=== PATIENT | male | born 1990 | race Caucasian/White ===

== ENCOUNTER 2019-01-26 13:20 | Inpatient (IN) | payer MEDICAID ==
--- NOTE | 2019-01-13 22:00 | NUR ---
PT. STILL AWAKE AT THIS TIME. ABLE TO ANSWER SIMPLE QUESTIONS. WATCHING TV . CALL LIGHT WITH IN REACH. NO SOB. NO RESTLESSNESS NOTED. MOTHER AT BEDSIDE. PT. CALM .TELEMETRY MONITORING.
[~2019-01-26] VITALS: Ht 182.9 cm; Wt 131.1 kg
--- NOTE | 2019-01-26 13:20 | NUR ---
Patient BIBA ALS accompanied by Imelda 183, transferred to bed 6. RN evaluating patient at bedside.
[2019-01-26 13:21] VITALS: BP 123/78
[2019-01-26] MEDS ORDERED: ONDANSETRON 4 MG/2 ML VIAL IVP ONE (13:40)
[2019-01-26] MEDS ORDERED: NACL 0.9% 1,000 ML IV ONE (13:40)
--- NOTE | 2019-01-26 13:50 | NUR ---
PT REMAINS WITH ALTERED LOC. PER DR GILL, VERBAL ORDER FOR STRAIGHT CATH TO GET URINE SAMPLE. PT UNABLE TO COLLECT URINE USING URINAL AT THIS TIME. EXPLAINED PROCEDURE TO PT, PT ABLE TO TOLERATE PROCEDURE WITH NO COMPLICATIONS. URINE SAMPLE GIVEN TO ASSEMBLY LEAD PERSON
--- NOTE | 2019-01-26 13:51 | NUR ---
X-Ray at bedside.
--- NOTE | 2019-01-26 14:05 | NUR ---
MATTEO FROM URGENT CARE WITH C/O AMS. PT IS A & O X4 AT THIS TIME. PT STATES HE DOES NOT KNOW HOW HE ARRIVED TO THE ER OR WHY HE IS HERE. PT TARA MEDICAL HISTORY, DRUG USE, ALCOHOL USE. PT IS AWAKE BUT APPEARS NERVOUS/SCARED AT THIS TIME. KENYATTA, GCS 15/15. BED IN LOW POSITION, SIDE RAIL UP X2 FOR PT SAFTEY. SEIZURE PADS IN PLACE A PRECATION. PT PLACED ON BEDSIDE BROODMARE BARN GROOM AT THIS TIME.
[2019-01-26 14:10] LABS: BASOPHILS % (AUTO) 0.3 % (0.0-2.0); EOSINOPHILS % (AUTO) 0.2 % (0.0-4.0); HEMATOCRIT 43.5 % (36-52); HEMOGLOBIN 14.7 g/dL (12.0-18.0); LYMPHOCYTES # (AUTO) 1.5 K/uL (2.0-11.5); LYMPHOCYTES % (AUTO) 13.9 % (20.5-51.1); MEAN CORPUSCULAR HEMOGLOBIN 29 pg (27-31); MEAN CORPUSCULAR HGB CONC 34 g/dL (33-37); MEAN CORPUSCULAR VOLUME 86.7 fL (80-94); MONOCYTES # (AUTO) 0.7 K/uL (0.8-1.0); MONOCYTES % (AUTO) 6.6 % (1.7-9.3); NEUTROPHILS # (AUTO) 8.5 K/uL (1.8-7.7); PLATELET COUNT (AUTO) 246 K/uL (140-450); RED BLOOD CELL COUNT(AUTO) 5.02 MIL/uL (4.20-6.10); RED CELL DISTRIBUTION WIDTH 13.2 % (11.6-13.7); WHITE BLOOD COUNT (AUTO) 10.7 K/uL (4.8-10.8)
--- NOTE | 2019-01-26 14:17 | NUR ---
Pt taken to CT via guraryne accompanied by nurse.
[2019-01-26 14:27] LABS: APPEARANCE,URINE CLEAR (CLEAR); BILIRUBIN,URINE NEGATIVE (NEGATIVE); BLOOD, URINE NEGATIVE (NEGATIVE); COLOR,URINE YELLOW (YELLOW); LEUKOCYTE ESTERASE ,URINE NEGATIVE (NEGATIVE); NITRITE, URINE NEGATIVE (NEGATIVE); UGLUCOSE NEGATIVE (NEGATIVE)
[2019-01-26 14:30] LABS: ANION GAP 12.6 (8-16); CARBON DIOXIDE 26.9 mmol/L (21-32); CHLORIDE 103 mmol/L (98-107); GFR ARICAN-AMERICAN 112 mL/min (>90); GLUCOSE 101 mg/dL (74-106); POTASSIUM 3.5 mmol/L (3.5-5.1); SODIUM SERUM 139 mmol/L (136-145); UREA NITROGEN, BLOOD 8 mg/dL (7-18)
--- NOTE | 2019-01-26 14:30 | NUR ---
Pt returned from CT and placed in bed 6.
[2019-01-26 14:37] LABS: ALBUMIN 3.6 g/dL (3.4-5.0); ASPARTATE AMINOTRANSFERASE 108 U/L (15-37); TOTAL BILIRUBIN 0.5 mg/dL (0.0-1.0)
[2019-01-26 14:39] LABS: ACETAMINOPHEN < 0.5 ug/ml (10-30); SALICYLATE < 2.8 mg/dL (2.8-20.0)
[2019-01-26 14:51] LABS: RBC,URINE NONE SEEN /HPF (0-5); WBC,URINE NONE SEEN /HPF (0-5)
[2019-01-26 14:52] LABS: URINE AMORPHOUS URATE 3+ /HPF (None Seen)
--- NOTE | 2019-01-26 14:53 | NUR ---
Dr. Multani evaluating patient at bedside.
[2019-01-26 15:09] LABS: PROTHROMBIN TIME 10.3 secs (10.8-13.4)
[2019-01-26 15:35] LABS: BARBITURATE, URINE NEG. ng/ml (NEG <=200); BENZODIAZEPINE, URINE NEG. ng/mL (NEG <=200); CANNABINOID, URINE NEG. ng/mL (NEG <=50); COCAINE, URINE NEG. ng/mL (NEG <=300); OPIATE, URINE NEG. ng/mL (NEG <=2000); PHENCYCLIDINE SCREEN,URINE NEG. ng/mL (NEG <=25)
--- NOTE | 2019-01-26 15:47 | NUR ---
Dr. Multani re-evaluating patient at bedside.
[2019-01-26] MEDS ORDERED: levETIRAcetam 1,000 MG in NACL 0.9% 100 ML IV ONE (15:55)
[2019-01-26] MEDS ORDERED: levETIRAcetam 100 MG/ML VIAL IV ONE ×2 (16:00→16:01)
[2019-01-26] MEDS ORDERED: ONDANSETRON 4 MG/2 ML VIAL IM/IVP PRN (16:25)
[2019-01-26] MEDS ORDERED: DOCUSATE SODIUM 100 MG GELCAP PO PRN (16:25)
--- NOTE | 2019-01-26 17:03 | NUR ---
WAITING FOR ROOM TO OPEN TO TAKE PT TO FLOOR
--- NOTE | 2019-01-26 17:03 | NUR ---
Rick tinajero in [facility] - 01/26/19 at 1703 by FELICITA WAITING FOR ROOM TO OPEN UP
[2019-01-26] MEDS ORDERED: LORazepam 2 MG/ML VIAL IM/IVP PRN (18:10)
--- NOTE | 2019-01-26 18:20 | NUR ---
RECEIVED REPORT FROM HENRY GALO. PT AAOX4, NO C/O PAIN. PT ON REFUND CLERK, VSS. IV ON LT AC 18 GA ON SALINE LOCK. RESPIRATIONS EVEN AND UNLABORED ON RA. ABD SOFT, ACTIVE BS, LBM 01/24. PT VOIDS, WILL PROVIDE URINAL. SKIN IS INTACT, WARM TO TOUCH. PT ON FALL RISK PRECAUTIONS, SAFETY MEASURES IN PLACE, CALL LIGHT WITHIN REACH. REVIEWED POC WITH PT, PT VERBALIZED UNDERSTANDING.
[2019-01-26] MEDS: NACL 0.9% 1,000 ML IV SCH (18:37)
[2019-01-26 18:40] VITALS: BP 120/63
--- NOTE | 2019-01-26 18:56 | NUR ---
Patient will be admitted to care of DR. WANG. Admited to TELEMETRY. Will go to room 121A. Belongings list completed. Report to HENRY QIUÑONES.
--- NOTE | 2019-01-26 19:00 | NUR ---
RECEIVED REPORT ON PT FROM AM NURSE. PT IN STABLE CONDITION. AWAKE,ALERT AND ORIENTED X3. WITH PERIODS OF FORGETFULNESS AT THIS TIME. STILL EATING DINNER. MOTHER AT BEDSIDE. ON TEL MONITOR. HAS IVF INFUSING WELL ON THE LT AC G #18. CLEAR AND PATENT. SIDE RAILS UP X2, PADDED FOR SEIZURE PRECAUTION. PLAN OF CARE DISCUSSED AND VERBALIZED UNDERSTANDING. BED ON LOW POSITION. FREQ ROUNDS NEEDED. CALL LIGHT AND URINAL WITHIN EASY REACH. WILL WILL CONTINUE TO MONITOR PT FOR MANY SEIZURE ACTIVITY.
--- NOTE | 2019-01-26 19:00 | NUR ---
ENDORSED PT TO POULTRY VETERINARIAN NURSE. PT SITTING UP IN BED HAVING DINNER. PT HAS NO SIGNS OF DISTRESS AT THIS TIME.
[2019-01-26 19:25] VITALS: BP 130/70
--- NOTE | 2019-01-26 19:30 | NUR ---
MRSA NARES SPECIMEN COLLECTED AND SEND TO LAB.
[2019-01-26 20:01] LABS: PHOSPHORUS 2.9 mg/dL (2.5-4.9); THYROID STIMULATING HORMONE 1.34 uIU/mL (0.34-3.74)
--- NOTE | 2019-01-26 20:45 | NUR ---
PT STILL EATING DINNER. MOTHER STILL AT BEDSIDE THEN FATHER CAME TO SEE PT.
[2019-01-26] MEDS: LORazepam 2 MG/ML VIAL IM/IVP PRN (21:54)
--- NOTE | 2019-01-26 21:55 | NUR ---
PT LOOKS ANXIOUS. STARING BLANKLY, BUT RESPONDED WHEN ASKED IF OK. MOM AT BEDSIDE. ATIVAN 1 MG IVP GIVEN ORDERED. WILL CONTINUE TO MONITOR.
--- NOTE | 2019-01-26 22:00 | NUR ---
US RESULT STILL PENDING. WILL FOLLOW UP RESULT.
[2019-01-27] VITALS (7 sets, daily range): BP systolic 120–141; BP diastolic 60–85
--- NOTE | 2019-01-27 01:30 | NUR ---
MADE ROUNDS . PT IS ASLEEP. NO S/S OF ANY DISCOMFORT NOTED. WILL CONTINUE TO MONITOR.
--- NOTE | 2019-01-27 02:54 | NUR ---
AWAKE. NO S/S OF ANY DISCOMFORT NOTED. NO SEIZURE ACTIVITY NOTED ALSO . WILL CONTINUE TO MONITOR.
--- NOTE | 2019-01-27 03:30 | NUR ---
MADE ROUNDS. PT AWAKE. WATCHING TV. NO C/O ANY DISCOMFORT NOTED.
--- NOTE | 2019-01-27 05:00 | NUR ---
MADE ROUNDS. PT STILL AWAKE. NO C/O ANY PAIN NOR ANY DISCOMFORT NOTED.
--- NOTE | 2019-01-27 06:11 | NUR ---
DR. SAMS MADE AWARE ABOUT PT NEED TO GET FLU VACCINE HERE [facility]ON [facility].
[2019-01-27 06:38] LABS: BASOPHILS % (AUTO) 0.4 % (0.0-2.0); EOSINOPHILS # (AUTO) 0.1 K/uL (0-0.4); EOSINOPHILS % (AUTO) 1.3 % (0.0-4.0); HEMOGLOBIN 14.9 g/dL (12.0-18.0); LYMPHOCYTES # (AUTO) 2.5 K/uL (2.0-11.5); LYMPHOCYTES % (AUTO) 25.3 % (20.5-51.1); MEAN CORPUSCULAR HEMOGLOBIN 30 pg (27-31); MEAN CORPUSCULAR HGB CONC 34 g/dL (33-37); MEAN CORPUSCULAR VOLUME 87.2 fL (80-94); MONOCYTES # (AUTO) 0.7 K/uL (0.8-1.0); MONOCYTES % (AUTO) 7.1 % (1.7-9.3); NEUTROPHILS # (AUTO) 6.4 K/uL (1.8-7.7); NEUTROPHILS % (AUTO) 65.9 % (42.2-75.2); PLATELET COUNT (AUTO) 238 K/uL (140-450); RED BLOOD CELL COUNT(AUTO) 5.05 MIL/uL (4.20-6.10); RED CELL DISTRIBUTION WIDTH 13.6 % (11.6-13.7); WHITE BLOOD COUNT (AUTO) 9.8 K/uL (4.8-10.8)
[2019-01-27 06:43] LABS: ANION GAP 10.7 (8-16); CARBON DIOXIDE 28.8 mmol/L (21-32); CREATININE 0.8 mg/dL (0.7-1.3); POTASSIUM 3.5 mmol/L (3.5-5.1)
[2019-01-27 06:55] LABS: MAGNESIUM 2.2 mg/dL (1.8-2.4); PHOSPHORUS 2.7 mg/dL (2.5-4.9)
[2019-01-27 06:56] LABS: CHOL/HDL RATIO 3.6 (1-4.5)
--- NOTE | 2019-01-27 07:25 | NUR ---
ENDORSED PT IN STABLE CONDITION TO AM NURSE FOR CONTINUITY OF CARE.
--- NOTE | 2019-01-27 07:38 | NUR ---
RECEIVED REPORT FROM LIAISON INSPECTION LABORATORY ASSISTANT RN. PT IN STABLE CONDITION. PT IS AAOX2 TO NAME AND KNOWLEDGE OF BEING IN THE HOSPITAL. AT THIS TIME PT DOES NOT RECALL WHAT CITY HE IS IN, WHAT HIS DATE IS, OR WHAT YEAR IT IS. EXHIBITING PERIODS OF FORGETFULNESS AT THIS TIME. ON TEL MONITOR. SKIN IS INTACT. PT HAS IVF INFUSING WELL ON THE LT AC G #18. CLEAR AND PATENT. SIDE RAILS UP X2, PADDED FOR SEIZURE PRECAUTION. PLAN OF CARE DISCUSSED WITH PT AND PT VERBALIZED UNDERSTANDING. BED ON LOW POSITION. FREQ ROUNDS NEEDED. CALL LIGHT AND URINAL WITHIN EASY REACH. WILL MONITOR PT CLOSELY.
--- NOTE | 2019-01-27 08:27 | NUR ---
PATIENT HAS BEEN SCREENED AND CATEGORIZED LOW NUTRITION RISK. PATIENT WILL BE SEEN WITHIN 7 DAYS OF ADMISSION. 02/02/[address]
[2019-01-27] MEDS: NACL 0.9% 1,000 ML IV SCH ×2 (09:03→20:57)
--- NOTE | 2019-01-27 09:12 | NUR ---
PT IN STABLE CONDITION RESTING IN BED. MORNING HEPARIN HELD PER MD ORDERS DUE TO PT HAVING LUMBAR PUNCTURE LATER IN THE DAY. ALL NEEDS MET. WILL CONTINUE TO ROUND FREQUENTLY ON PT. BED IN LOW POSITION, CALL LIGHT WITHIN REACH.
[2019-01-27] MEDS: LORazepam 2 MG/ML VIAL IM/IVP PRN ×2 (10:31→17:01)
[2019-01-27 11:12] LABS: RAPID PLASMA REAGIN NON-REACTIVE (Non Reactiv)
--- NOTE | 2019-01-27 11:14 | NUR ---
PT HAVING EEG DONE AT THIS TIME. PT TOLERATING TEST WELL. PT IN STABLE CONDITION AT THIS TIME.
--- NOTE | 2019-01-27 11:40 | NUR ---
PT RESTING IN BED WITH MOM AT BEDSIDE. ALL NEEDS CURRENTLY MET. WILL CONTINUE TO ROUND FREQUENTLY ON PT.
--- NOTE | 2019-01-27 11:54 | NUR ---
RECEIVED CONSENT FROM PT'S MOTHER FOR LUMBAR PUNCTURE. CREDIT RELATIONSHIP MANAGER PHONE WAS USED TO GET VERBAL CONSENT. CREDIT RELATIONSHIP MANAGER WHO HELPED TRANSLATE CALL BETWEEN AND MOTHER PAPITO WAS JONNA. CREDIT RELATIONSHIP MANAGER ID IS [id number].
[2019-01-27] MEDS: levETIRAcetam 1,000 MG in NACL 0.9% 100 ML IV SCH ×2 (13:42→20:57)
--- NOTE | 2019-01-27 13:47 | NUR ---
PT RESTING IN BED. NO SIGNS OF AGITATION OR PAIN. WILL CONTINUE TO ROUND FREQUENTLY ON PT. BED IN LOW POSITION, CALL LIGHT WITHIN REACH. PT'S MOTHER AT BEDSIDE.
--- NOTE | 2019-01-27 13:51 | NUR ---
PT TAKEN FOR LUMBAR PUNCTURE. PT LEFT IN STABLE CONDITION.
[2019-01-27] MEDS ORDERED: fentaNYL 0.05 MG/ML VIAL ONE (13:56)
[2019-01-27] MEDS ORDERED: MIDAZOLAM 2 MG/2 ML VIAL ONE (13:57)
[2019-01-27] MEDS ORDERED: LIDOCAINE 2% 1000 MG/50 ML VIAL INJ SCH (14:25)
--- NOTE | 2019-01-27 15:47 | NUR ---
PT RETURNED FROM LUMBAR PUNCTURE. INSTRUCTED TO HAS PT LAY ON BACK FOR 6HRS STARTING FROM NOW. WILL ENDORSED TO SOLDER SPRAYER FOR CONTINUATION OF CARE. PT PUNCTURE SITE INTACT AND NO SIGNS OF BLEEDING. WILL CONTINUE TO MONITOR PT CLOSELY.
--- NOTE | 2019-01-27 17:38 | NUR ---
PT SLEEPING IN PRONE POSITION. MOTHER AT BEDSIDE. WILL CONTINUE TO ROUND FREQUENTLY ON PT. BED IN LOW POSITION, CALL LIGHT WITHIN REACH.
--- NOTE | 2019-01-27 19:29 | NUR ---
ENDORSED PT TO ROBOTIC WELDER FOR CONTINUITY OF CARE. PT IN STABLE CONDITION AT THIS TIME.
--- NOTE | 2019-01-27 19:30 | NUR ---
RECEIVED PT IN STABLE CONDITION FROM AM NURSE. PT ON TELE MONITOR-ST. AWAKE BUT CONFUSED AT THIS TIME. TRYING TO PUT PT ON HI ABDOMEN NEEDED AFTER THE LUMBAR PUNCTURE DONE THIS PM. HAS IVF INFUSING WELL ON THE LEFT AC G#18. CLEAR AND PATENT. PLAN OF CARE DISCUSSED AND FAMILY VERBALIZED UNDERSTANDING. BED ON LOW POSITION, SIDE RAILS UP X2, PADDED FOR SEIZURE PRECAUTION. CALL LIGHT AND URINAL PLACED WITHIN REACH . FREQUENT ROUNDS NEEDED. WILL CONTINUE TO MONITOR.
--- NOTE | 2019-01-27 20:45 | NUR ---
PT ENCOURAGED TO STILL BE FLAT ON BED AT THIS TIME.
--- NOTE | 2019-01-27 21:30 | NUR ---
DR. MELÉNDEZ SAID TO STILL HOLD THE HEPARIN SUBQ TONIGHT.
--- NOTE | 2019-01-27 23:15 | NUR ---
AWAKE, ASSISTED TO USE THE URINAL. VOIDED @ 500 ML . WILL CONTINUE TO MONITOR.
[2019-01-28] MEDS: LORazepam 2 MG/ML VIAL IM/IVP PRN ×3 (00:16→20:57)
--- NOTE | 2019-01-28 00:16 | NUR ---
PT IS AWAKE AND LOOK ANXIOUS ,CAN'T RELAX IN BED. ATIVAN 1 MG IVP GIVEN ORDERED. WILL CONTINUE TO MONITOR.
--- NOTE | 2019-01-28 02:00 | NUR ---
MADE ROUNDS. PT IS ASLEEP. NO S/S OF ANY DISCOMFORT NOTED. WILL CONTINUE TO MONITOR.
[2019-01-28 04:30] VITALS: BP 148/64
--- NOTE | 2019-01-28 04:30 | NUR ---
PT ASLEEP. ABLE TO TAKE VITAL SIGNS,STABLE. NO SEIZURE ACTIVITY NOTED DURING THE NIGHT.
[2019-01-28] MEDS: levETIRAcetam 1,000 MG in NACL 0.9% 100 ML IV SCH ×3 (04:34→20:28)
[2019-01-28 04:38] VITALS: BP 148/61
--- NOTE | 2019-01-28 06:00 | NUR ---
PT AWAKE. HE SAID HE IS OK. WITH PERIODS OF LIKE TALKING TO SELF.
[2019-01-28 06:07] LABS: HEPATITIS A ANTIBODY IGM Negative (Negative); HEPATITIS B CORE AB TOTAL Negative (Negative); HEPATITIS B SURFACE ANTIBODY Non Reactive (.); HEPATITIS B SURFACE ANTIGEN Negative (Negative)
[2019-01-28 06:36] LABS: MAGNESIUM 2.1 mg/dL (1.8-2.4); PHOSPHORUS 3.5 mg/dL (2.5-4.9)
[2019-01-28 06:44] LABS: ANION GAP 12.5 (8-16); CARBON DIOXIDE 26.8 mmol/L (21-32); CREATININE 0.8 mg/dL (0.7-1.3); POTASSIUM 3.3 mmol/L (3.5-5.1)
[2019-01-28 06:54] LABS: BASOPHILS % (AUTO) 0.3 % (0.0-2.0); EOSINOPHILS # (AUTO) 0.1 K/uL (0-0.4); EOSINOPHILS % (AUTO) 1.1 % (0.0-4.0); HEMATOCRIT 43.7 % (36-52); HEMOGLOBIN 14.7 g/dL (12.0-18.0); LYMPHOCYTES # (AUTO) 2.8 K/uL (2.0-11.5); MEAN CORPUSCULAR HEMOGLOBIN 30 pg (27-31); MEAN CORPUSCULAR HGB CONC 34 g/dL (33-37); MONOCYTES # (AUTO) 0.7 K/uL (0.8-1.0); MONOCYTES % (AUTO) 6.7 % (1.7-9.3); NEUTROPHILS # (AUTO) 6.4 K/uL (1.8-7.7); NEUTROPHILS % (AUTO) 63.9 % (42.2-75.2); PLATELET COUNT (AUTO) 248 K/uL (140-450); RED BLOOD CELL COUNT(AUTO) 4.97 MIL/uL (4.20-6.10); RED CELL DISTRIBUTION WIDTH 13.6 % (11.6-13.7); WHITE BLOOD COUNT (AUTO) 10.1 K/uL (4.8-10.8)
--- NOTE | 2019-01-28 07:20 | NUR ---
ENDORSED PT IN STABLE CONDITION TO AM NURSE.
--- NOTE | 2019-01-28 07:22 | NUR ---
RECEIVED REPORT FROM NIGHT RN. PT RESTING IN BED. AAOX2, NO S/S OF ACUTE DISTRESS. PT DENIES PAIN. IV SITE PATENT AND INTACT. CALL LIGHT WITHIN REACH. SAFETY MEASURES ENSURED. WILL CONTINUE TO MONITOR.
[2019-01-28 08:00] VITALS: BP 128/78
--- NOTE | 2019-01-28 08:45 | NUR ---
PT SITTING ON SIDE OF BED. AAOX2, NO S/S OF ACUTE DISTRESS. PT DENIES PAIN. PT'S IV LEAKING AT SITE. CALL LIGHT WITHIN REACH. SAFETY MEASURES ENSURED. WILL CONTINUE TO MONITOR .
[2019-01-28] MEDS ORDERED: POTASSIUM CHLORIDE 10 MEQ TABER PO SCH (09:00)
[2019-01-28 12:25] VITALS: BP 129/88
--- NOTE | 2019-01-28 12:30 | NUR ---
PT AMBULATING TO BATHROOM. NO S/S OF ACUTE DISTRESS. PT DENIES PAIN. IV SITE PATENT AND INTACT. CALL LIGHT WITHIN REACH. SAFETY MEASURES ENSURED. WILL CONTINUE TO MONITOR.
[2019-01-28] MEDS: HYDROcodone/APAP 5/325 MG 1 TAB TAB PO PRN (13:34)
--- NOTE | 2019-01-28 14:46 | NUR ---
CALLED [facility] [phone] SPOKE WITH BUTCH , RECEIVED THE MRI QUESTIONER, AND REQUESTED ATIVAN TO BE GIVEN PRIOR TO MOLDING LINE OPERATOR TIME , AND SCHEDULE THE MRI TO BE DONE AT 7AM AND SCHEDULE [facility] MOLDING LINE OPERATOR AT 0630AM TOMORROW 01/29/18 . NOTIFIED MARTI FIGUEROA . Addendum: 01/28/19 at 1527 by Brett [address] KAMRON faxed [facility] and scheduled transportation from [address] to [facility] on 01/28/2019 7:00AM. KAMRON arranged for transportation to wait and return. KAMRON confirmed with Kay at [facility]. KAMRON/ANALILIA will follow up as needed.
--- NOTE | 2019-01-28 15:27 | NUR ---
FINANCIAL MANAGEMENT FOR PATIENT WILL BE AT 0630 AM FOR TRANSPORT TO [place]. NUMBER FOR REPORT [phone]. PLEASE MEDICATE WITH ATIVAN FOR ANXIETY PRIOR TO TRANSPORT. SEND MOST CURRENT BNP WITH PATIENT.
[2019-01-28 16:00] VITALS: BP 140/72
[2019-01-28] MEDS: NACL 0.9% 1,000 ML IV SCH ×2 (17:32→22:23)
[2019-01-28 19:12] LABS: CSF GLUCOSE 68 mg/dL (40-70); CSF PROTEIN 86.9 mg/dL (15-45)
--- NOTE | 2019-01-28 19:15 | NUR ---
REPORT RECEIVED FROM AM NURSE AT BEDSIDE. PT IN STABLE CONDITION. AAOX2. INTRODUCED SELF TO PT. BOARD UPDATED. NO COMPLAINTS OF PAIN. NO SOB. AFEBRILE. PT IS AMBULATORY BUT UNSTEADY. PT IS A FALL RISK. IV SITE L AC 20G RUNNING NS@60ML/HR PATENT AND INTACT. SKIN WARM, DRY, AND INTACT WITH NO OPEN WOUNDS. BED LOCKED IN LOW POSITION. CALL GIL WITHIN REACH. SAFETY PRECAUTION IN PLACE. ALL NEEDS MET AT THIS TIME.
[2019-01-28 20:00] VITALS: BP 168/101
--- NOTE | 2019-01-28 20:28 | NUR ---
ALBARO GIL AND MAYRA. HEPARIN GIVEN SUBQ. PT TOLERATED WELL.
--- NOTE | 2019-01-28 20:57 | NUR ---
ATIVAN GIVEN FOR ANXIETY. PT TOLERATED WELL.
--- NOTE | 2019-01-28 21:35 | NUR ---
PT IN BED WATCHING TV. NO S/S OF DISTRESS NOTED. WILL CONTINUE TO MONITOR.
[2019-01-28] MEDS: ACETAMINOPHEN 325 MG TAB PO PRN (23:07)
--- NOTE | 2019-01-28 23:07 | NUR ---
TYL GIVEN FOR HEADACHE. PT TOLERATED WELL.
[2019-01-28] MEDS: MELATONIN 3 MG TAB PO PRN (23:59)
--- NOTE | 2019-01-28 23:59 | NUR ---
MELATONIN GIVEN FOR RESTLESSNESS. PT TOLERATED WELL.
[2019-01-29] VITALS: BP 126/68
--- NOTE | 2019-01-29 02:20 | NUR ---
PT SLEEPING COMFORTABLY BUT AROUSABLE. NO S/S OF DISTRESS NOTED. NO COMPLAINTS OF PAIN. NO SOB. AFEBRILE. WILL CONTINUE TO MONITOR.
[2019-01-29] MEDS: MECLIZINE 25 MG TAB PO PRN (03:29)
--- NOTE | 2019-01-29 03:29 | NUR ---
MECLIZINE GIVEN FOR DIZZINESS. PT TOLERATED WELL.
[2019-01-29 04:00] VITALS: BP 126/73
[2019-01-29] MEDS: levETIRAcetam 1,000 MG in NACL 0.9% 100 ML IV SCH ×3 (04:07→20:59)
--- NOTE | 2019-01-29 04:07 | NUR ---
ALBARO GIL AND RUNNING. PT TOLERATING WELL.
[2019-01-29 06:06] LABS: BASOPHILS % (AUTO) 0.4 % (0.0-2.0); EOSINOPHILS # (AUTO) 0.1 K/uL (0-0.4); EOSINOPHILS % (AUTO) 1.2 % (0.0-4.0); HEMATOCRIT 44.8 % (36-52); HEMOGLOBIN 15.1 g/dL (12.0-18.0); LYMPHOCYTES % (AUTO) 34.6 % (20.5-51.1); MEAN CORPUSCULAR HEMOGLOBIN 30 pg (27-31); MEAN CORPUSCULAR HGB CONC 34 g/dL (33-37); MEAN CORPUSCULAR VOLUME 87.7 fL (80-94); MONOCYTES # (AUTO) 0.8 K/uL (0.8-1.0); NEUTROPHILS # (AUTO) 6.7 K/uL (1.8-7.7); NEUTROPHILS % (AUTO) 56.8 % (42.2-75.2); PLATELET COUNT (AUTO) 271 K/uL (140-450); RED BLOOD CELL COUNT(AUTO) 5.11 MIL/uL (4.20-6.10); RED CELL DISTRIBUTION WIDTH 13.4 % (11.6-13.7); WHITE BLOOD COUNT (AUTO) 11.7 K/uL (4.8-10.8)
[2019-01-29 06:15] LABS: ANION GAP 10.6 (8-16); CARBON DIOXIDE 28.5 mmol/L (21-32); POTASSIUM 3.1 mmol/L (3.5-5.1)
[2019-01-29] MEDS: LORazepam 2 MG/ML VIAL IM/IVP PRN ×2 (06:18→22:43)
--- NOTE | 2019-01-29 06:18 | NUR ---
ATIVAN GIVEN BEFORE [facility] ARRIVAL TO TAKE FOR MRI.
--- NOTE | 2019-01-29 06:35 | NUR ---
REPORT GIVEN TO [facility] ALONG WITH [facility] VOUCHER AND A COPY OF THE LABS. PT GOING TO [place] FOR MRI. PT IN STABLE CONDITION. TELE BOX REMOVED.
[2019-01-29 06:58] LABS: PHOSPHORUS 3.9 mg/dL (2.5-4.9)
--- NOTE | 2019-01-29 07:00 | NUR ---
RECEIVED REPORT ABOUT THE PT FROM INTAKE NURSE NURSE, JOYCE, PT WENT TO [facility] FOR A MRI, PER ENDORSEMENT PT IS CONFUSED AND HAS A PERIPHERAL LINE ON THE LEFT AC G. 20, PT IS A FALL RISK, SAFETY AND SEIZURE PRECAUTION WILL BE ENFORCED WHEN PT COMES BACK, WILL ASSESS PT WHEN HE COMES BACK TO UNIT.
[2019-01-29 08:50] VITALS: BP 134/99
--- NOTE | 2019-01-29 08:50 | NUR ---
RECEIVED PT FROM [facility] TRANSPORT PERSONNEL, PT IS EATING HIS BREAKFAST, NO SIGN OF DISTRESS NOTED AND WILL MONITOR PT.
[2019-01-29] MEDS: POTASSIUM CHLORIDE 10 MEQ TABER PO SCH ×2 (09:26→21:00)
--- NOTE | 2019-01-29 09:26 | NUR ---
PT IS AWAKE AND SEATED ON THE BD, JUST FINISHED EATING HIS BREAKFAST, ORAL AND SUBQ MEDICATIONS WERE GIVEN AND TOLERATED IT. WILL MONITOR PT.
[2019-01-29 12:00] VITALS: BP 129/85
--- NOTE | 2019-01-29 12:59 | NUR ---
PT IS AWAKE AND MOTHER ON THE BEDSIDE, KEPPRA IV WAS GIVEN TO PT AND WILL MONITOR PT.
--- NOTE | 2019-01-29 14:30 | NUR ---
ECHO IS BEING DONE TO PT NOW.
[2019-01-29 16:00] VITALS: BP 140/82
--- NOTE | 2019-01-29 16:15 | NUR ---
PT IS EATING, MOTHER ON THE BEDSIDE, NO SIGN OF DISTRESS NOTED AND WILL CONTINUE TO BE MONITORED.
--- NOTE | 2019-01-29 19:15 | NUR ---
ENDORSED PT TO PREMIX OPERATOR CONCENTRATE NURSEJOYCE FOR CONTINUITY OF CARE
--- NOTE | 2019-01-29 19:16 | NUR ---
REPORT RECEIVED FROM AM NURSE AT BEDSIDE. PT IN STABLE CONDITION. AAOX2 ORIENTED TO PERSON AND PLACE. BOARD UPDATED. NO COMPLAINTS OF PAIN. NO SOB. AFEBRILE. PT IS AMBULATORY BUT UNSTEADY. IV SITE L AC 18G RUNNING NS@60ML/HR PATENT AND INTACT. SKIN WARM, DRY, AND INTACT WITH NO OPEN WOUNDS. BED LOCKED IN LOW POSITION. CALL GIL WITHIN REACH. SAFETY PRECAUTION IN PLACE. ALL NEEDS MET AT THIS TIME.
[2019-01-29 20:00] VITALS: BP 143/85
--- NOTE | 2019-01-29 20:59 | NUR ---
ALBARO GIL AND MAYRA. NORCO GIVEN PO. HEPARIN GIVEN SUBQ. PT TOLERATED WELL.
[2019-01-29] MEDS: HYDROcodone/APAP 5/325 MG 1 TAB TAB PO PRN (21:00)
[2019-01-29] MEDS: MELATONIN 3 MG TAB PO PRN (21:28)
--- NOTE | 2019-01-29 21:28 | NUR ---
MELATONIN GIVEN FOR RESTLESSNESS.
--- NOTE | 2019-01-29 21:30 | NUR ---
PT CONTINUOUSLY GETTING UP WHEN TOLD NOT TO GET UP. PT EXTREMELY CONFUSED AND NON COMPLIANT.
--- NOTE | 2019-01-29 22:43 | NUR ---
ATIVAN GIVEN FOR ANXIETY. PT TOLERATED WELL.
--- NOTE | 2019-01-29 22:50 | NUR ---
PT TOLD TO STAY IN BED AFTER GIVEN ATIVAN. PT UNSTEADY AND GAIT IS COMPROMISED. TOLD HIM TO STAY IN BED SO HE DOES NOT FALL. PT IS NON COMPLIANT AND CONFUSED.
[2019-01-30] VITALS: BP 135/82
--- NOTE | 2019-01-30 00:30 | NUR ---
PT SLEEPING COMFORTABLY BUT AROUSABLE. NO S/S OF DISTRESS NOTED. WILL CONTINUE TO MONITOR.
--- NOTE | 2019-01-30 02:00 | NUR ---
PT SLEEPING COMFORTABLY BUT AROUSABLE. NO S/S OF DISTRESS NOTED. NO COMPLAINTS OF PAIN. NO SOB. AFEBRILE. WILL CONTINUE TO MONITOR.
[2019-01-30] MEDS: LORazepam 2 MG/ML VIAL IM/IVP PRN (02:59)
[2019-01-30] MEDS: ACETAMINOPHEN 325 MG TAB PO PRN (02:59)
--- NOTE | 2019-01-30 02:59 | NUR ---
TYL GIVEN FOR HEADACHE. PT TOLERATED WELL. Addendum: 01/30/19 at 0500 by Aurelio Jewell RN ATIVAN GIVEN FOR ANXIETY.
[2019-01-30] MEDS: NACL 0.9% 1,000 ML IV SCH ×2 (03:40→20:15)
[2019-01-30 04:00] VITALS: BP 113/58
[2019-01-30] MEDS: levETIRAcetam 1,000 MG in NACL 0.9% 100 ML IV SCH ×3 (04:09→20:10)
--- NOTE | 2019-01-30 04:09 | NUR ---
ALBARO GIL AND RUNNING. PT TOLERATING WELL.
--- NOTE | 2019-01-30 06:23 | NUR ---
PT SITTING UP IN BED WATCHING TV. NO S/S OF DISTRESS NOTED. PT IN STABLE CONDITION.
[2019-01-30 06:35] LABS: ANION GAP 13.1 (8-16); CARBON DIOXIDE 27.3 mmol/L (21-32); POTASSIUM 4.4 mmol/L (3.5-5.1)
[2019-01-30 06:53] LABS: MAGNESIUM 1.9 mg/dL (1.8-2.4); PHOSPHORUS 3.8 mg/dL (2.5-4.9)
[2019-01-30 07:31] LABS: BASOPHILS % (AUTO) 0.5 % (0.0-2.0); EOSINOPHILS # (AUTO) 0.3 K/uL (0-0.4); EOSINOPHILS % (AUTO) 2.9 % (0.0-4.0); HEMATOCRIT 42.3 % (36-52); LYMPHOCYTES # (AUTO) 2.9 K/uL (2.0-11.5); LYMPHOCYTES % (AUTO) 33.6 % (20.5-51.1); MEAN CORPUSCULAR HEMOGLOBIN 30 pg (27-31); MEAN CORPUSCULAR HGB CONC 33 g/dL (33-37); MEAN CORPUSCULAR VOLUME 88.7 fL (80-94); MONOCYTES # (AUTO) 0.6 K/uL (0.8-1.0); MONOCYTES % (AUTO) 6.5 % (1.7-9.3); NEUTROPHILS # (AUTO) 4.9 K/uL (1.8-7.7); NEUTROPHILS % (AUTO) 56.5 % (42.2-75.2); PLATELET COUNT (AUTO) 246 K/uL (140-450); RED BLOOD CELL COUNT(AUTO) 4.77 MIL/uL (4.20-6.10); RED CELL DISTRIBUTION WIDTH 13.5 % (11.6-13.7); WHITE BLOOD COUNT (AUTO) 8.7 K/uL (4.8-10.8)
--- NOTE | 2019-01-30 07:31 | NUR ---
RECEIVED BEDSIDE REPORT FROM PM RN PT APPEARS STABLE AND IN NO APPARENT DISTRESS. PT AWAKE AND SITTING IN BEDSIDE CHAIR ALL SAFETY MEASURES ARE IN PLACE WILL CONTINUE TO MONITOR
[2019-01-30 08:46] VITALS: BP 126/78
--- NOTE | 2019-01-30 09:46 | NUR ---
FREQUENT ROUNDING ON PT PT APPEARS STABLE AND IN NO APPARENT DISTRESS ALL SAFETY MEASURES ARE IN PLACE WILL CONTINUE TO MONITOR.
--- NOTE | 2019-01-30 11:34 | NUR ---
FREQUENT ROUNDING ON PT PT APPEARS STABLE AND IN NO APPARENT DISTRESS ALL SAFETY MEASURES ARE IN PLACE WILL CONTINUE TO MONITOR.
[2019-01-30 12:31] VITALS: BP 128/89
--- NOTE | 2019-01-30 13:46 | NUR ---
FREQUENT ROUNDING ON PT PT APPEARS STABLE AND IN NO APPARENT DISTRESS ALL SAFETY MEASURES ARE IN PLACE WILL CONTINUE TO MONITOR.
[2019-01-30] MEDS: MECLIZINE 25 MG TAB PO PRN (16:13)
[2019-01-30 16:32] VITALS: BP 124/78
--- NOTE | 2019-01-30 17:43 | NUR ---
FREQUENT ROUNDING ON PT PT APPEARS STABLE AND IN NO APPARENT DISTRESS ALL SAFETY MEASURES ARE IN PLACE WILL CONTINUE TO MONITOR.
--- NOTE | 2019-01-30 18:25 | NUR ---
PLACED COLLECTION SPECIMEN AT BEDSIDE, PT AND FAMILY ARE AWARE OF THE PROCEDURE.
--- NOTE | 2019-01-30 19:29 | NUR ---
ENDORSED PT TO PM RN PT AWAKE IN BED PT APPEARS STABLE AND IN NO APPARENT DISTRESS, ALL SAFETY MEASURES ARE IN PLACE, SEIZURE PRECAUTIONS, ASPIRATION PRECAUTIONS. ENDORSED 24 URINE ON ICE COLLECTION, STARTED AT 1850
--- NOTE | 2019-01-30 19:30 | NUR ---
RECEIVED FROM AM RN IN BED AWAKE AND ALERT. PRESENTLY PT. CALM AND QUIET JUST LOOKING AT MOTHER. MOTHER AT BEDSIDE. CARE PLANS FOR THE NIGHT DISCUSSED WITH MOTHER AND SISTER. PT. WITH CONFUSION AND BED ALARM IN PLACE. CALL LIGHT WITH IN REACH. INSTRUCTED MOTHER TO CALL FOR ANY HELP SHE MAY NEED OR IF WITH ANY QUESTIONS.
[2019-01-30 20:00] VITALS: BP 124/76
[2019-01-30] MEDS: MELATONIN 3 MG TAB PO PRN (20:25)
[2019-01-31 00:21] VITALS: BP 138/76
--- NOTE | 2019-01-31 00:23 | NUR ---
PT. BEEN SLEEPING WELL. WOKE UP AT THIS TIME TO URINATE IN URINAL. MOTHER AT BEDSIDE WATCHING OVER HIM. CALL LIGHT WITH IN REACH. PT.WENT BACK TO BED AFTER AND WENT TO SLEEP. NO PAIN COMPLAINTS. TELEMETRY MONITORING.
--- NOTE | 2019-01-31 02:01 | NUR ---
PT. URINATED IN URINAL. WENT BACK TO SLEEP AFTER. NO COMPLAINTS OF PAIN. FOLLOWS SIMPLE REQUEST . TELEMETRY MONITORING. MOTHER AT BEDSIDE.
[2019-01-31 04:17] VITALS: BP 131/78
[2019-01-31] MEDS: HYDROcodone/APAP 5/325 MG 1 TAB TAB PO PRN (04:22)
[2019-01-31] MEDS: levETIRAcetam 1,000 MG in NACL 0.9% 100 ML IV SCH ×3 (04:44→20:43)
--- NOTE | 2019-01-31 04:53 | NUR ---
PT. COMPLAINED OF HEADACHE AND POINTING TO TOP OF HEAD. FACIAL GRIMACING AND MOTHER MASSAGING HEAD. PROVIDED WITH ICE PACK . PT. CALMED DOWN AND ENCOURAGED TO BEAR WITH IT A LITTLE RT MEDICATION FOR PAIN WAS JUST ADMINISTERED. "PT. NODDED HEAD IN AGREEMENT.
--- NOTE | 2019-01-31 06:25 | NUR ---
PT. SLEEPING WELL AT THIS TIME. MOTHER AT BEDSIDE SLEEPING TOO. NO NOTED SEIZURES THIS SHIFT. PER MOTHER NO SEIZURES NOTED BY HER. WILL ENDORSE TO AM SHIFT FOR CONTINUITY OF CARE.
--- NOTE | 2019-01-31 06:44 | NUR ---
PT. WOKE UP AND SITTING AT EDGE OF BED CRYING. ASKED MOTHER WHAT IS WRONG AND PER MOTHER HE IS JUST VERY EMOTIONAL AT THIS TIME. PROVIDED WITH MORE ICE PACK FOR HEAD TO CALM PT. IVF WITH GOOD BLOOD RETURN. EXPLAINED TO MOTHER HE NEEDS IVF FLUID.
[2019-01-31] MEDS: LORazepam 2 MG/ML VIAL IM/IVP PRN ×2 (07:01→17:19)
--- NOTE | 2019-01-31 07:01 | NUR ---
PT. MOTHER CALLED FOR HELP RT PT./SON WENT TO RESTROOM AND PULLED OUT THE WATER TUBE AND BANGED IT AGAINST WALL AND CRYING. TALKED TO PT. TO GO BACK TO BED AND THAT I WILL GIVE HIM ATIVAN TO CALM HIM DOWN AND SO THAT HE WILL NOT BE NERVOUS. PT. FOLLOWED REQUEST AND WENT BACK TO BED CRYING. ATIVAN 1 MG ADMINISTERED. MOTHER AT BEDSIDE WATCHING PT. AND MASSAGING HIS HAND. PT. AT THIS TIME STILL SOBBING. WILL ENDORSE TO AM RN FOR CONTINUITY OF CARE.
--- NOTE | 2019-01-31 07:15 | NUR ---
RECEIVED REPORT FROM ROAD MONKEY RN AT BEDSIDE. PT IN BED, AAOX2. CALM AND QUIET AT THIS TIME. MOTHER AT BEDSIDE. VITALS STABLE, PT HAS DELAY IN ANSWERING QUESTIONS. PT IS ABLE TO FOLLOW SIMPLE COMMANDS. HOWEVER, ACTING WEIRD SOMETIMES, FOR EXAMPLE POINTING INDEX FINGER UP OR AT NOWHERE. IV CATH NOTED ON LEFT AC, 20G, PATENT AND ASYMPTOMATIC. FALL PRECAUTIONS IN PLACE. CALL LIGHT WITH IN REACH.
[2019-01-31 07:48] LABS: BASOPHILS # (AUTO) 0.1 K/uL (0.00-0.22); BASOPHILS % (AUTO) 0.6 % (0.0-2.0); EOSINOPHILS # (AUTO) 0.2 K/uL (0-0.4); EOSINOPHILS % (AUTO) 2.4 % (0.0-4.0); HEMATOCRIT 42.5 % (36-52); LYMPHOCYTES # (AUTO) 2.3 K/uL (2.0-11.5); LYMPHOCYTES % (AUTO) 24.3 % (20.5-51.1); MEAN CORPUSCULAR HEMOGLOBIN 29 pg (27-31); MEAN CORPUSCULAR HGB CONC 33 g/dL (33-37); MONOCYTES # (AUTO) 0.6 K/uL (0.8-1.0); MONOCYTES % (AUTO) 6.3 % (1.7-9.3); NEUTROPHILS # (AUTO) 6.3 K/uL (1.8-7.7); NEUTROPHILS % (AUTO) 66.4 % (42.2-75.2); PLATELET COUNT (AUTO) 242 K/uL (140-450); RED BLOOD CELL COUNT(AUTO) 4.83 MIL/uL (4.20-6.10); RED CELL DISTRIBUTION WIDTH 13.5 % (11.6-13.7); WHITE BLOOD COUNT (AUTO) 9.5 K/uL (4.8-10.8)
[2019-01-31 08:00] VITALS: BP 129/86
[2019-01-31 08:13] LABS: ANION GAP 8.9 (8-16); CARBON DIOXIDE 31.4 mmol/L (21-32); CREATININE 0.9 mg/dL (0.7-1.3); POTASSIUM 4.3 mmol/L (3.5-5.1)
[2019-01-31] MEDS: NACL 0.9% 1,000 ML IV SCH (09:12)
--- NOTE | 2019-01-31 09:25 | NUR ---
PT REQUESTS TO TAKE A SHOWER. MADE DR MAHMOOD AWARE. DR MAHMOOD IS OK WITH PT GOING TO SHOWER WHILE PT'S MOTHER STAYS WITH HIM.
--- NOTE | 2019-01-31 10:05 | NUR ---
PT HAD SHOWER, SAFELY RETURNED TO BED. IV STILL INTACT AND PATENT.
[2019-01-31 12:00] VITALS: BP 124/75
[2019-01-31 12:13] LABS: MAGNESIUM 2.1 mg/dL (1.8-2.4)
[2019-01-31 16:00] VITALS: BP 116/76
--- NOTE | 2019-01-31 17:00 | NUR ---
CHATTING WITH PT. PT WAS ABLE TO ANSWERING HIS NAME, WHERE HE IS AT, BUT DON'T KNOW WHY HE IS IN THE HOSP. 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 PT STARTED ACTING WEIRD, POINTING WITH FINGER ON THE FLOOR AND THEN HIS HEAD. ASKED IF HE SEES ANY THING OR ANYONE, PT DENIES. ASKING IF HE KNOWS WHO I AM, PT SAID THE NURSE. ASKED IF HE FEELS ANXIOUS, IF I CAN GIVE HIM ATIVAN TO HELP HIM CALMING DOWN. PT AGREES.
[2019-01-31] MEDS ORDERED: LORazepam 2 MG/ML VIAL IVP STA (18:42)
[2019-01-31] MEDS ORDERED: LORazepam 2 MG/ML VIAL ONE (18:44)
--- NOTE | 2019-01-31 18:50 | NUR ---
24HR URINE SENT TO LAB.
--- NOTE | 2019-01-31 19:25 | NUR ---
RECEIVED BEDSIDE REPORT FROM DAY SHIFT NURSE. PATIENT IS AWAKE AND COOPERATIVE. RESPIRATION EVEN UNLABORED ON ROOM AIR. NO DISTRESS NOTED. SKIN IS WARM AND DRY. IV PATENT AND INTACT. DENIES PAIN. FAMILY AT BEDSIDE ALL SAFETY MEASURES IN PLACE. PLAN OF CARE WAS DISCUSSED. BED IS AT LOW POSITION. CALL LIGHT WITHIN REACH AND VERBALIZES ITS USE. WILL CONTINUE TO MONITOR.
[2019-01-31 20:00] VITALS: BP 118/75
--- NOTE | 2019-01-31 20:00 | NUR ---
INITIAL ASSESSMENT DONE. VITALS WERE TAKEN. PATIENT IN STABLE CONDITION. FAMILY AT BEDSIDE. WILL CONTINUE TO MONITOR.
[2019-01-31] MEDS: risperiDONE 1 MG TAB PO SCH (20:45)
[2019-01-31] MEDS: LORazepam 2 MG/ML VIAL IM/IVP SCH (20:46)
--- NOTE | 2019-01-31 21:00 | NUR ---
ALL SCHEDULED MEDS WERE GIVEN PER ORDER. NO ASE NOTED. WILL CONTINUE TO MONITOR.
--- NOTE | 2019-01-31 22:00 | NUR ---
CHECKED PATIENT. PATIENT SLEEPING RESPIRATION EVEN UNLABORED ON ROOM AIR. NO DISTRESS NOTED. FAMILY AT BEDSIDE. WILL CONTINUE TO MONITOR.
[2019-02-01] VITALS: BP 115/64
--- NOTE | 2019-02-01 | NUR ---
VITALS WERE TAKEN. PATIENT IN STABLE CONDITION. NO DISTRESS NOTED. FAMILY AT BEDSIDE. WILL CONTINUE TO MONITOR.
--- NOTE | 2019-02-01 02:30 | NUR ---
CHECKED ON PATIENT. PATIENT SLEEPING RESPIRATION EVEN UNLABORED ON ROOM AIR. NO DISTRESS NOTED. WILL CONTINUE TO MONITOR.
[2019-02-01 04:00] VITALS: BP 122/56
--- NOTE | 2019-02-01 04:00 | NUR ---
VITALS WERE TAKEN. PATIENT IN STABLE CONDITION. NO DISTRESS NOTED. WILL CONTINUE TO MONITOR.
[2019-02-01] MEDS: levETIRAcetam 1,000 MG in NACL 0.9% 100 ML IV SCH ×3 (04:30→21:12)
[2019-02-01] MEDS: ACETAMINOPHEN 325 MG TAB PO PRN (04:51)
--- NOTE | 2019-02-01 04:53 | NUR ---
PATIENT COMPLAINED OF HEADACHE 5/10. PRN PAIN MED ADMINISTERED PER ORDER. WILL CONTINUE TO MONITOR.
[2019-02-01] MEDS: NACL 0.9% 1,000 ML IV SCH ×2 (05:47→22:51)
--- NOTE | 2019-02-01 07:29 | NUR ---
ENDORSED PATIENT TO DAY SHIFT NURSE. PATIENT IN STABLE CONDITION
--- NOTE | 2019-02-01 07:40 | NUR ---
RECEIVED HAND OFF REPORT FROM PM RN PT APPEARS STABLE AND IN NO APPARENT DISTRESS. ALL SAFETY MEASURES ARE IN PLACE. WILL CONTINUE TO MONITOR
[2019-02-01 07:43] LABS: BASOPHILS % (AUTO) 0.4 % (0.0-2.0); EOSINOPHILS # (AUTO) 0.2 K/uL (0-0.4); EOSINOPHILS % (AUTO) 2.5 % (0.0-4.0); HEMATOCRIT 41.2 % (36-52); HEMOGLOBIN 13.5 g/dL (12.0-18.0); LYMPHOCYTES # (AUTO) 2.2 K/uL (2.0-11.5); LYMPHOCYTES % (AUTO) 26.6 % (20.5-51.1); MEAN CORPUSCULAR HEMOGLOBIN 29 pg (27-31); MEAN CORPUSCULAR HGB CONC 33 g/dL (33-37); MEAN CORPUSCULAR VOLUME 88.6 fL (80-94); MONOCYTES # (AUTO) 0.5 K/uL (0.8-1.0); NEUTROPHILS # (AUTO) 5.3 K/uL (1.8-7.7); NEUTROPHILS % (AUTO) 64.5 % (42.2-75.2); PLATELET COUNT (AUTO) 244 K/uL (140-450); RED BLOOD CELL COUNT(AUTO) 4.65 MIL/uL (4.20-6.10); RED CELL DISTRIBUTION WIDTH 13.4 % (11.6-13.7); WHITE BLOOD COUNT (AUTO) 8.2 K/uL (4.8-10.8)
[2019-02-01 07:48] LABS: ANION GAP 9.6 (8-16); CARBON DIOXIDE 29.4 mmol/L (21-32)
[2019-02-01 08:00] VITALS: BP 111/71
[2019-02-01] MEDS: LORazepam 2 MG/ML VIAL IM/IVP SCH ×4 (08:46→21:14)
[2019-02-01] MEDS: risperiDONE 1 MG TAB PO SCH ×2 (08:47→21:18)
--- NOTE | 2019-02-01 09:16 | NUR ---
FREQUENT ROUNDING ON PT PT APPEARS STABLE AND IN NO APPARENT DISTRESS. ALL SAFETY MEASURES ARE IN PLACE WILL CONTINUE TO MONITOR
[2019-02-01 10:36] LABS: PHOSPHORUS 3.7 mg/dL (2.5-4.9)
--- NOTE | 2019-02-01 11:34 | NUR ---
FREQUENT ROUNDING ON PT PT APPEARS STABLE AND IN NO APPARENT DISTRESS, ALL SAFETY MEASURES ARE IN PLACE WILL CONTINUE TO MONITOR
[2019-02-01] MEDS: HYDROcodone/APAP 5/325 MG 1 TAB TAB PO PRN (12:13)
[2019-02-01 12:45] VITALS: BP 132/85
--- NOTE | 2019-02-01 13:35 | NUR ---
FREQUENT ROUNDING ON PT PT APPEARS STABLE ADN IN NO APPARENT DISTRESS. ALL SAFETY MEASURES ARE IN PLACE WILL CONTINUE TO MONITOR
--- NOTE | 2019-02-01 15:56 | NUR ---
FREQUENT ROUNDING ON PT PT APPEARS STABLE AND IN NO APPARENT DISTRESS. ALL SAFETY MEASURES ARE IN PLACE WILL CONTINUE TO MONITOR
[2019-02-01 16:35] VITALS: BP 129/71
--- NOTE | 2019-02-01 17:43 | NUR ---
FREQUENT ROUNDING ON PT PT APPEARS STABLE AND IN NO APPARENT DISTRESS ALL SAFETY MEASURES ARE IN PLACE WILL CONTINUE TO MONITOR
--- NOTE | 2019-02-01 19:07 | NUR ---
ENDORSED PT TO PM RN PT APPEARS STABLE AND IN NO APPARENT DISTRESS. ALL SAFETY MEASURES ARE IN PLACE SEIZURE PRECAUTIONS IN PLACE. PT MOTHER AT BEDSIDE. ALL SAFETY MEASURES IN PLACE. BED IN LOWEST AND LOCKED POSITION. IVF INFUSING IV SITE PATENT AND SHOWS NO SIGNS OF INFILTRATION OR INFLAMMATION.
--- NOTE | 2019-02-01 19:30 | NUR ---
RECEIVED PT FROM RAVINDER RN PT IS AAOX2 DROWSY BUT FOLLOW COMMANDS, IV ON LEFT AC INFUSING WELL ON TELEMETRY SR, RELATIVE AT BED SIDE INITIAL ASSESSMENT DONE
[2019-02-01 20:00] VITALS: BP 130/61
--- NOTE | 2019-02-01 22:00 | NUR ---
PT AFTER VOIDING WELL PT SLEEPING ,NOT DISTRESS NOTED ON TELEMETRY SR , RELATIVE AT BED SIDE , NOT SEIZURES ACTIVITY SEEN
[2019-02-02] VITALS: BP 102/66
--- NOTE | 2019-02-02 02:19 | NUR ---
PT SLEEPING WELL, ON TELEMETRY SR NOT DISTRESS NOTED RELATIVE AT BED SIDE
[2019-02-02 04:00] VITALS: BP 131/85
--- NOTE | 2019-02-02 04:00 | NUR ---
SPONGE BATH GIVEN LINEN CHANGED PT IS BRUSHING HIS TEETH , AMBULATESD TO THE RESTROOM VOIDING WELL, ON TELE SR
[2019-02-02] MEDS: levETIRAcetam 1,000 MG in NACL 0.9% 100 ML IV SCH ×2 (05:04→13:00)
--- NOTE | 2019-02-02 06:57 | NUR ---
PT MORE AWAKE IMPROVING HIS MENTAL STATUS NOT DISTRESS NOTED PT WILL BE ENDORSED TO DAY SHIFT NURSE FOR CONTINUE OF CARE
--- NOTE | 2019-02-02 07:15 | NUR ---
RECEIVED PT FROM NIGHT NURSE. AAOX1. UNABLE TO VERBALIZE LOCATION OR DATE AFTER SEVERAL TRIES. RESPIRATIONS EVEN AND UNLABORED ON ROOM AIR. SKIN INTACT. IV IN PLACE INFUSING PER ORDER L FA 20G, PATENT AND ASYMPTOMATIC. MOTHER OF PT AT BEDSIDE. BED IN LOW POSITION. SAFETY MEASURES IN PLACE. CALL LIGHT WITHIN REACH. WILL CONTINUE TO MONITOR.
[2019-02-02] MEDS: risperiDONE 1 MG TAB PO SCH (09:01)
[2019-02-02] MEDS: LORazepam 2 MG/ML VIAL IM/IVP SCH ×2 (09:01→14:27)
--- NOTE | 2019-02-02 09:07 | NUR ---
MEDICATIONS ADMINISTERED PER ORDER. HEPARIN INJ HELD PER VERBAL ORDER FROM DR MONSON. PT TOLERATED WELL. NO DISTRESS NOTED. WILL CONTINUE TO MONITOR.
[2019-02-02] MEDS ORDERED: RIS1 PO (11:58)
[2019-02-02] MEDS ORDERED: LORA2TAB7 PO (11:58)
[2019-02-02] MEDS ORDERED: LEVE1000 PO (12:40)
[2019-02-02] MEDS ORDERED: KEP500 PO (12:43)
--- NOTE | 2019-02-02 13:24 | NUR ---
MEDICATIONS ADMINISTERED PER ORDER. PT TOLERATED WELL. WILL CONTINUE TO MONITOR.
[2019-02-02 13:28] VITALS: BP 125/79
--- NOTE | 2019-02-02 13:39 | NUR ---
02/02/19 RD INITIAL ASSESSMENT COMPLETED PLEASE REFER TO NUTRITION ASSESSMENT UNDER CARE ACTIVITY FOR ESTIMATED NUTRITIONAL NEEDS. 1. CONTINUE REGULAR DIET TOLERATED 2. RD TO FOLLOW-UP 5-7 DAYS, LOW RISK MATILDE PETERSEN RD
--- NOTE | 2019-02-02 16:45 | NUR ---
PT READY FOR DISCHARGE AT THIS TIME. PT DISCHARGED IN STABLE CONDITION. RESPIRATIONS EVEN AND UNLABORED. IV SIGHT REMOVED WITH MINIMAL BLOOD LOSS AND LUMEN INTACT. SKIN INTACT. PT ABLE TO AMBULATE TO WHEELCHAIR WITH ASSISTANCE. EDUCATION ON FOLLOW UP APPOINTMENTS AND MEDICATIONS GIVEN TO MOTHER OF PT. PT ESCORTED OFF THE UNIT IN WHEELCHAIR ACCOMPANIED BY PT FAMILY
== END 2019-02-02 16:45 | disposition home or self-care (01) | DRG 53 ==
LOC: MED 13:20 → MTU 16:23
PROVIDERS: ADMIT General Practice; ATTEND General Practice
PROC: 009U3ZX Drainage of Spinal Canal, Percutaneous Approach, Diagnostic (ICD-10-PCS; principal; 2019-01-27)
PROC: B01B1ZZ Fluoroscopy of Spinal Cord using Low Osmolar Contrast (ICD-10-PCS; 2019-01-27)
PROC: 4A00X4Z Measurement of Central Nervous Electrical Activity, External Approach (ICD-10-PCS; 2019-01-28)
DX: R56.9 Unspecified convulsions (principal); G93.40 Encephalopathy, unspecified; E72.20 Disorder of urea cycle metabolism, unspecified; E66.9 Obesity, unspecified; E87.6 Hypokalemia; F20.2 Catatonic schizophrenia; K76.0 Fatty (change of) liver, not elsewhere classified; Z68.39 Body mass index [BMI] 39.0-39.9, adult
CPT/HCPCS: 36415; 70450; 71045; 76705; 77003; 80048; 80053; 80305; 81001; 82140; 82150; 82390; 82525; 82948; 83605; 83655; 83690; 83735; 83880; 84100; 84157; 84436; 84443; 84484; 85025; 85610; 85730; 86171; 86592; 86704; 86706; 86708; 86709; 86803; 87040; 87081; 87086; 87340; 93005; 95816; 96361; 96365; 96375; 99285; C1758; G0480; G0482; J1644; J1953; J2001; J2060; J2250; J2405; J3010; J7030; J8597; Q0092

== ENCOUNTER 2019-02-05 20:01 | Emergency (ER) | payer MEDICAID ==
[~2019-02-05] VITALS: Ht 188 cm; Wt 147.4 kg
[~2019-02-05 20:01] MED LIST: KEP500 PO; LORA2TAB7 PO; RIS1 PO
[2019-02-05 20:25] VITALS: BP 145/80
--- NOTE | 2019-02-05 21:07 | NUR ---
PT TAKEN TO BED 3
--- NOTE | 2019-02-05 21:15 | NUR ---
29 Y/O M BIB PARENTS C/O ABNORMAL BEHAVIOR. PER PT PARENTS HE PRESENTED TO [facility] FOR NEW ONSET OF SEIZURES ON 01/26/19. PT WAS D/C'D ON 02/02/19 AND PER PT PARENTS PT HAS BEEN ACTING DIFFERENTLY. PT DOES NOT ANSWER QUESTIONS APPROPRIATELY. PT IS WAVING HIS ARMS AROUND AND PT PARENTS STATE "THIS IS NOT LIKE HIM TO BE DOING THIS" PT NEW RX LORAZEPAM 2MG QID, RISPERADOL 1MG BID, AND KEPPRA 500MG BID. PT HAS NEUROLOGIST APPOINTMENT ON 02/24/19. WHEN ASKING PT IF HE HAD ANY PAIN, HE DID NOT ANSWER. ALLERGIES: NKA. MED HX: SEIZURES. SAFETY MEASURES IN PLACE. ERMD MADE AWARE OF PT STATUS.
--- NOTE | 2019-02-05 21:31 | NUR ---
Note tanvi in EDM - 02/05/19 at 2133 by [place] Patient discharged with v/s stable. PT PARENT IS ENCOURAGED TO KEEP PT HYDRATED AND TO MONITOR TEMPERATURE. Written and verbal after care instructions given and explained to parent/guardian. Parent/Guardian verbalized understanding of instructions. Carried with by parent. All questions addressed prior to discharge. ID band removed. Parent/Guardian advised to follow up with PMD. Rx of CETIRIZINE HYDROCHLORIDE 1MG, CHILDREN'S IBUPROFEN 100MG AND ACETAMINOPHEN 160MG WAS given. Parent/Guardian educated on indication of medication including possible reaction and side effects. Opportunity to ask questions provided and answered.
--- NOTE | 2019-02-05 21:45 | NUR ---
PER PT PARENTS PT HAS BEEN HAVING AN AVERAGE OF X3 SEIZURES A DAY.
[2019-02-05 21:56] LABS: BASOPHILS % (AUTO) 0.4 % (0.0-2.0); EOSINOPHILS # (AUTO) 0.2 K/uL (0-0.4); EOSINOPHILS % (AUTO) 2.1 % (0.0-4.0); HEMATOCRIT 41.1 % (36-52); HEMOGLOBIN 13.5 g/dL (12.0-18.0); LYMPHOCYTES # (AUTO) 2.4 K/uL (2.0-11.5); LYMPHOCYTES % (AUTO) 28.1 % (20.5-51.1); MEAN CORPUSCULAR HEMOGLOBIN 29 pg (27-31); MEAN CORPUSCULAR HGB CONC 33 g/dL (33-37); MEAN CORPUSCULAR VOLUME 88.8 fL (80-94); MONOCYTES # (AUTO) 0.7 K/uL (0.8-1.0); MONOCYTES % (AUTO) 7.9 % (1.7-9.3); NEUTROPHILS # (AUTO) 5.3 K/uL (1.8-7.7); NEUTROPHILS % (AUTO) 61.5 % (42.2-75.2); PLATELET COUNT (AUTO) 265 K/uL (140-450); RED BLOOD CELL COUNT(AUTO) 4.63 MIL/uL (4.20-6.10); RED CELL DISTRIBUTION WIDTH 13.5 % (11.6-13.7); WHITE BLOOD COUNT (AUTO) 8.6 K/uL (4.8-10.8)
--- NOTE | 2019-02-05 22:05 | NUR ---
PT RESTING IN BED COMFORTABLY. VSS. WILL CONTINUE TO MONITOR.
[2019-02-05 22:11] LABS: ANION GAP 14.3 (8-16); CARBON DIOXIDE 27.4 mmol/L (21-32); CHLORIDE 105 mmol/L (98-107); GFR ARICAN-AMERICAN 112 mL/min (>90); GLUCOSE 94 mg/dL (74-106); POTASSIUM 3.7 mmol/L (3.5-5.1); SODIUM SERUM 143 mmol/L (136-145); UREA NITROGEN, BLOOD 12 mg/dL (7-18)
[2019-02-05 22:17] LABS: ALBUMIN 3.5 g/dL (3.4-5.0); ASPARTATE AMINOTRANSFERASE 68 U/L (15-37); TOTAL BILIRUBIN 0.3 mg/dL (0.0-1.0)
[2019-02-05 23:06] LABS: BARBITURATE, URINE NEG. ng/ml (NEG <=200); BENZODIAZEPINE, URINE NEG. ng/mL (NEG <=200); CANNABINOID, URINE NEG. ng/mL (NEG <=50); COCAINE, URINE NEG. ng/mL (NEG <=300); OPIATE, URINE NEG. ng/mL (NEG <=2000); PHENCYCLIDINE SCREEN,URINE NEG. ng/mL (NEG <=25)
[2019-02-05 23:31] VITALS: BP 149/79
--- NOTE | 2019-02-05 23:31 | NUR ---
Patient discharged with v/s stable. Written and verbal after care instructions given and explained. Patient alert, oriented and verbalized understanding of instructions. Ambulatory with steady gait. All questions addressed prior to discharge. ID band removed. Patient advised to follow up with PMD. Rx of DIPHENHYDRAMINE WAS given. Patient educated on indication of medication including possible reaction and side effects. Opportunity to ask questions provided and answered. PARENTS UNDERSTOOD D/C INSTRUCTIONS
== END 2019-02-05 23:31 | disposition home or self-care (01) ==
LOC: MED 20:01
DX: R41.82 Altered mental status, unspecified (principal); Z86.69 Personal history of other diseases of the nervous system and sense organs; Z79.899 Other long term (current) drug therapy
CPT/HCPCS: 36415; 80053; 80305; 82140; 85025; 99283; G0482